=== PATIENT | male | born 1990 | race Caucasian/White ===

== ENCOUNTER → 2018-05-27 | Outpatient (CLI) | payer OTHER | END | disposition home or self-care (01) | LOC: CARD 12:54 | PROVIDERS: ATTEND Nurse Practitioner Acute Care | DX: G40.89 Other seizures (principal); K21.9 Gastro-esophageal reflux disease without esophagitis; E78.5 Hyperlipidemia, unspecified; G47.33 Obstructive sleep apnea (adult) (pediatric) | CPT/HCPCS: 95819 ==